=== PATIENT | female | born 1975 | race African-American/Black ===

== ENCOUNTER 2017-01-08 10:59 | Emergency (ER) | payer OTHER ==
[~2017-01-08] VITALS: Ht 157.5 cm; Wt 81.6 kg
[2017-01-08 11:04] VITALS: BP 146/50
[2017-01-08] MEDS ORDERED: TRAM50TA PO (11:41)
--- NOTE | 2017-01-08 11:41 | PHYS DOC ---
Past Medical History Past Medical History: Asthma Past Surgical History: , Other Additional Past Surgical Histo: hernia repair Alcohol Use: None Drug Use: None Adult General Chief Complaint Chief Complaint: UPPER EXTREMITY INJURY HPI HPI Patient is a 41 year old female who presents with left wrist pain. 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 She has had chronic pain since the time of injury. She had imaging performed at the time of injury as well as 2 months later in September 2016. She has been referred for physical therapy but has not been able to make it to an appointment yet due to past schedules. She denies any new injuries. Has been wearing a wrist brace, takes ibuprofen occasionally. Review of Systems Review of Systems Constitutional: Denies fever or chills HENT: Denies nasal congestion or sore throat Respiratory: Denies cough Cardiovascular: Denies chest pain GI: Denies abdominal pain, nausea, vomiting Musculoskeletal: Reports wrist pain Integument: Denies rash Neurologic: Denies headache Current Medications Current Medications Current Medications Medications (Trade) Dose Ordered Sig/Esau Start Time Stop Time Status Last Admin Dose Admin Tramadol HCl (Ultram) 50 mg 1X ONCE 01/08/17 11:45 01/08/17 11:46 DC Allergies Allergies Allergies Coded Allergies Type Severity Reaction Last Updated Verified No Known Drug Allergies 01/08/17 No Physical Exam Physical Exam Constitutional: Obese, no acute distress, non-toxic appearance. HENT: Normocephalic, atraumatic, bilateral external ears normal, oropharynx moist, nose normal. Eyes: conjunctiva normal, no discharge. Cardiovascular: no edema. Lungs & Thorax: no respiratory distress. Abdomen: nondistended. Skin: Warm, dry, Extremities: Left wrist no swelling or deformity, generalized tenderness about the wrist and distal forearm on the volar aspect, intact range of motion with flexion and extension at the wrist, radial pulse 2+, radial/median/ulnar nerve sensory and motor function intact. No elbow tenderness, compartments soft. Neurologic: Alert and oriented X 3 Current Patient Data Vital Signs Vital Signs Date Time Temp Pulse Resp B/P Pulse Ox O2 Delivery O2 Flow Rate FiO2 01/08/17 11:04 98.1 68 18 100 Room Air 98.1 EKG EKG [] Radiology/Procedures Radiology/Procedures [] Course & Med Decision Making Course & Med Decision Making Pertinent Labs and Imaging studies reviewed. (See chart for details) Patient presents with chronic wrist pain after injury. She had paperwork with her detailing negative radiographic exam in September. Discussed lack of utility of additional x-ray. At this time she is comfortable with that plan. Recommended ice packs, use brace as needed for comfort, take Tylenol or ibuprofen at home, gave prescription for tramadol to take as needed for severe pain. No drinking alcohol or driving while taking this medication, may cause sedation. Follow-up with physical therapy as his heart even arranged. For any additional concerns please see Dr. Hubbard in the primary care clinic. Patient discharged home in stable condition. [] Dragon Disclaimer Dragon Disclaimer This electronic medical record was generated, in whole or in part, using a voice recognition dictation system. Departure Departure Impression: Primary Impression: Wrist pain, left Disposition: 01 HOME, SELF-CARE Condition: STABLE Referrals: SENG HUBBARD MD (PCP) Patient Instructions: Wrist Pain, [id number] Additional Instructions: You were seen in the emergency department today for wrist pain. It is very important to start going to physical therapy so that you can regain normal use of your wrist. In the meantime continue to use the brace, apply heating pads, use Tylenol or ibuprofen and if that isn't help you can take tramadol for severe pain. No drinking alcohol or driving while taking this medication. Follow -up with Dr. Hubbard in a primary care clinic if not improving after physical therapy. Scripts Tramadol Hcl 50 Mg Tablet1 Tab PO PRN Q6HRS PRN PAIN #10 TAB Prov:GLORIA DREW MD 01/08/17 GLORIA DREW MD Jan 08, 2017 11:41
[2017-01-08] MEDS ORDERED: TRAMADOL 50 MG TABLET. PO ONE (11:45)
== END 2017-01-08 11:40 | disposition home or self-care (01) ==
LOC: ER 10:59
DX: M25.532 Pain in left wrist (principal); G89.29 Other chronic pain
CPT/HCPCS: 99283

== ENCOUNTER → 2021-02-14 | Outpatient (CLI) | payer OTHER ==
[~2021-02-14] MED LIST: TRAM50TA PO
--- NOTE | 2021-02-14 13:26 | KCIC ---
Bilateral digital screening mammograms: Reason for examination: Routine screening. Comparison is made to previous study dated 02/08/2014. Interpretation was made with the benefit of CAD. The skin and nipples show no abnormalities. No abnormal axillary lymph nodes are seen. The breast par enchyma is extremely dense. (Breast density: Category D.) There appears to be a new nodule present in the left breast at the 8:30 B position approximately 5.5 cm from the nipple and measuring 7.5 mm in size. Recommend further evaluation with ultrasound. There are no other dominant masses, suspicious ca lcifications or architectural distortion. Impression: 7.5 mm nodular density medially in the left breast at approximately the 8:30 position 5.5 cm from the nipple. Recommend further evaluation with ultrasound. Your patient's mammogram demonstrates that she has dense breast tissue (breast density category C or D), which could hide abnormalities, and if she has other risk factors for breast cancer that have bee n identified, she might benefit from supplemental screening tests that may be suggested by you as her ordering physician. Dense breast tissue, in and of itself, is a relatively common condition. Therefo re, this information is not provided to cause undue concern, but rather to raise your awareness and t o promote discussion with your patient regarding the presence of other risk factors, in addition to d ense breast tissue. Your patient's mammography results will be sent to her. BI-RAD Category 0: Incomplete. Needs additional imaging evaluation. "Our facility is accredited by the [employer] Mammography [employer]." This patient's information has been entered into a reminder system for the patient to be notified wit h the results of her examination and a target date for the next mammogram. Electronically signed by: Maral Sheikh MD (02/14/2021 1:24 PM) [id number]
== END ==
LOC: KCIC MAMMO 09:21
PROVIDERS: ATTEND Internal Medicine
DX: Z12.31 Encounter for screening mammogram for malignant neoplasm of breast (principal); N64.89 Other specified disorders of breast
CPT/HCPCS: 77067

== ENCOUNTER → 2021-03-04 | Outpatient (CLI) | payer OTHER ==
--- NOTE | 2021-03-04 13:13 | KCIC ---
Left breast ultrasound: Reason for examination: Nodular density on screening mammogram. Comparison is made to mammographic exam dated 02/14/2021. Ultrasound examination of the left breast and axilla was performed. At the 8:30 position 5.5 cm from the nipple, there is a 7.4 mm hypoechoic circumscribed lesion in par allel orientation with a benign fibrocystic appearance. No other cystic or solid lesions are seen and no abnormal appearing lymph nodes are seen in the axilla. IMPRESSION: Benign-appearing fibrocystic lesion at the 8:30 position. No suspicious abnormality seen. Recommend 6 month follow-up with ultrasound. BI-RADS Category 3: Probably Benign. "Our facility is accredited by the [employer] Mammography Program." This patient's information has been entered into a reminder system for the patient to be notified wit h the results of her examination and a target date for the next mammogram. Electronically signed by: Maral Sheikh MD (03/04/2021 1:10 PM) [email or web address]
== END ==
LOC: KCIC US 12:39
PROVIDERS: ATTEND Internal Medicine
DX: R92.8 Other abnormal and inconclusive findings on diagnostic imaging of breast (principal)
CPT/HCPCS: 76641